=== PATIENT | female | born 1980 | race Caucasian/White ===

== ENCOUNTER → 2018-03-23 10:10 | Outpatient (CLI) | payer OTHER, SELFPAY ==
[2018-03-23 10:58] LABS: Cholesterol 189 mg/dL (140-199); HDL Cholesterol 36 mg/dL (40-60); LDL Cholesterol Calculated 111 mg/dL (<100); Triglycerides 209 mg/dL (35-150)
== END ==
PROVIDERS: PCP Family Medicine
DX: E78.2 Mixed hyperlipidemia (principal)
CPT/HCPCS: 36415; 80061

== ENCOUNTER → 2019-03-12 13:09 | Outpatient (CLI) | payer OTHER, SELFPAY ==
[2019-03-12 13:35] LABS: Influenza A and B by PCR Rapid Negative (Negative)
== END ==
PROVIDERS: PCP Family Medicine; Visit Provider Physician Assistant
DX: R68.89 Other general symptoms and signs (principal)
CPT/HCPCS: 87400

== ENCOUNTER → 2019-04-04 12:49 | Outpatient (CLI) | payer OTHER, SELFPAY ==
[2019-04-04 13:37] LABS: Add Manual Diff / Slide Review NO; Basophils Absolute Auto 0 /uL (0-100); Basophils Percent Auto 0.9 % (0-2); Eosinophils Absolute Auto 300 /uL (0-450); Eosinophils Percent Auto 6.8 % (2-4); Hematocrit 42.9 % (36-46); Hemoglobin 14.6 g/dL (12.0-16.0); Lymphocytes Absolute Auto 1400 /uL (1100-4500); Lymphocytes Percent Auto 31.4 % (25-40); Mean Corpuscular HGB Conc 34.1 % (30-36); Mean Corpuscular Hemoglobin 29.4 PG (26-34); Mean Corpuscular Volume 86.3 fL (80-100); Monocytes Absolute Auto 400 /uL (0-900); Monocytes Percent Auto 7.8 % (3-14); Neutrophils Absolute Auto 2400 /uL (1500-7000); Neutrophils Percent Auto 53.1 % (50-75); Platelet Count 222 X10^3/uL (150-400); Red Blood Cell Count 4.97 X10^6/uL (4.0-5.2); Red Cell Distribution Width 13.5 % (11.6-14.8); White Blood Cell Count 4.6 X10^3/uL (4.5-11.0)
[2019-04-04 14:06] LABS: Alanine Aminotransferase 28 IU/L (9-52); Albumin 4.4 g/dL (3.5-5.0); Albumin Globulin Ratio 1.5 (1.0-2.8); Alkaline Phosphatase 68 U/L (38-126); Aspartate Aminotransferase 24 IU/L (14-36); BUN Creatinine Ratio 13.8 (6-22); Bilirubin Total 0.5 mg/dL (0.2-1.3); Blood Urea Nitrogen 11 mg/dL (7-17); Calcium 9.5 mg/dL (8.4-10.2); Carbon Dioxide 29 mmol/L (22-32); Chloride 106 mmol/L (98-107); Estimated Glomerular Filt Rate > 60.0 mL/min (>60); Glucose 84 mg/dL (70-100); HEMOLYSIS < 15 (0-50); Sodium 142 mmol/L (137-145); Total Protein 7.4 g/dL (6.3-8.2)
[2019-04-04 14:31] LABS: TSH w/ Reflex to FT4 4.19 uIU/mL (0.47-4.68)
[2019-04-04 14:39] LABS: Testosterone 31.4 ng/dL (5.71-77.0)
== END ==
PROVIDERS: PCP Family Medicine; Visit Provider Family Medicine
DX: L68.0 Hirsutism (principal); Z83.3 Family history of diabetes mellitus
CPT/HCPCS: 36415; 80053; 84403; 84443; 85025

== ENCOUNTER 2019-05-11 13:00 | Emergency (ER) | payer OTHER, SELFPAY ==
[2019-05-11 13:10] VITALS: BP 139/92; PULSE 78; RESP 18; TEMP 36.6; O2SAT 100
[2019-05-11 13:12] VITALS: BP 139/92; PULSE 75; RESP 16; O2SAT 100; BMI 35.2
--- NOTE | 2019-05-11 13:20 | ED.ABDPAIN ---
HPI - Abdominal Pain <TAWANA Stewart - Last Filed: 05/11/19 20:00> General Chief Complaint: Abdominal Pain Stated Complaint: stomach pain and diarrhea since the Time Seen by Provider: 05/11/19 13:08 Source: patient Mode of arrival: ambulatory History of Present Illness HPI narrative: 39-year-old female with a history of hypertension, presents emergency department today complaining of sudden onset of abdominal pain and diarrhea for the past week. She states the pain is diffuse cramping 4/10 without alleviating or aggravating factors. She reports having 5-6 episodes of loose stool a day, in states her food is often undigested. She has been taking cephalexin since Thursday for right foot cellulitis but states the diarrhea occurred a day before this. She denies sick contacts, fevers, chills, vomiting, chest pain, shortness of breath, history of abdominal issues, recent travel, recent camping or hiking, melena, dysuria, or vaginal discharge. Patient states that she often makes her own tea and is unsure if she cleans the bottles well enough, however she stops drinking this tea three days ago. MD complaint: abdominal pain Pain Consistency: constant Location: diffuse Severity: moderate Severity scale (1-10): 4 Quality: cramping Radiation: none Relieving factors: nothing Exacerbating factors: nothing Related Data Home Medications Medication Instructions Recorded Confirmed Mirena 52 mg INTRAU QDAY #0 10/27/17 05/11/19 loratadine 10 mg tablet 10 mg PO DAILY 04/19/18 05/11/19 Previous Rx's Medication Instructions Recorded clobetasol 0.05 % topical ointment 1 applictn TOP BEDTIME #15 gram 04/29/19 spironolactone 25 mg tablet 25 mg PO BID #60 tab 04/29/19 cephalexin 500 mg capsule 500 mg PO QID 7 Days #28 cap 05/09/19 mupirocin 2 % topical ointment 1 applic TOP BID #22 gram 05/09/19 terbinafine HCl 1 % topical cream 1 applictn TOP BID #30 gram 05/09/19 Allergies Allergy/AdvReac Type Severity Reaction Status Date / Time No Known Drug Allergies Allergy Verified 05/11/19 13:12 Review of Systems <TAWANA Stewart - Last Filed: 05/11/19 20:00> Review of Systems REVIEW OF SYSTEMS: GENERAL: Denies fever, chills, malaise, or wt. loss. HENT: No head trauma, sore throat, or dysphagia. EYES: No loss of vision, double vision, eye pain, or irritation. CARDIOVASCULAR: No chest pain, palpitations, or orthopnea. RESPIRATORY: No shortness of breath or cough. GASTROINTESTINAL: Complains of abdominal pain and diarrhea, see HPI GENITOURINARY: No flank pain, urinary incontinence, hesitancy, frequency, or dysuria. No vaginal discharge or dyspareunia. Denies concerns for STIs MUSCULOSKELETAL: No pain, weakness, or trauma. INTEGUMENTARY: No rash, lesions, or pruritus. NEURO: No numbness, tingling, memory loss, confusion, or headaches. PSYCH: No behavior or mood changes. PFSH <TAWANA Stewart - Last Filed: 05/11/19 20:00> Medical History Alopecia (Chronic ~2014) Anxiety (Chronic ~1997) Chronic back pain (Chronic ~1993) Depression (Chronic ~1999) Hay fever (Chronic ~1999) Hyperlipidemia (Chronic ~2014) Hypertension (Chronic ~2014) Scoliosis (Chronic ~1993) Chicken pox (Resolved ~1985) Surgical History History of third molar tooth extraction Family History Brother Age: 34 High cholesterol Father Parkinson's disease Mother Age: 62 Hypertension High cholesterol Hearing loss Diabetes mellitus Grandmother Age: 92 Asthma Sister Age: 35 Mental health problem Asthma HPV in female Depression Grandfather Prostate cancer Social History marital status: unmarried,living together occupational status: employed (House keeper/laundry) Smoking Status: Never smoker alcohol intake: current substance use type: does not use Family History Brother Age: 34 High cholesterol Father Parkinson's disease Mother Age: 62 Hypertension High cholesterol Hearing loss Diabetes mellitus Grandmother Age: 92 Asthma Sister Age: 35 Mental health problem Asthma HPV in female Depression Grandfather Prostate cancer Social History marital status: unmarried,living together occupational status: employed (House keeper/laundry) Smoking Status: Never smoker alcohol intake: current substance use type: does not use Exam <TAWANA Stewart - Last Filed: 05/11/19 20:00> Initial Vital Signs Initial Vital Signs: Vital Signs Temperature 97.8 F 05/11/19 13:10 Pulse Rate 78 05/11/19 13:10 Respiratory Rate 18 05/11/19 13:10 Blood Pressure 139/92 H 05/11/19 13:10 Pulse Oximetry 100 05/11/19 13:10 PHYSICAL EXAMINATION: GENERAL: Well groomed, alert, and cooperative. Answers questions promptly and appropriately. Vital signs noted. HENT: Normocephalic, atraumatic. Hearing intact. Oral mucosa is pink and moist. EYES: Conjunctiva pink, sclera white, no periorbital swelling. CARDIOVASCULAR: S1 and S2 sounds normal. Regular rate and rhythm, no murmurs, clicks, or bruits. No pedal edema. RESPIRATORY: Normal respiratory rate, trachea midline, airway patent. No stridor, nasal flaring or accessory muscle use. Lungs are clear in all hernandez without wheeze, rhonchi, or crackles. GASTROINTESTINAL: Bowel sounds normoactive. Abdomen is soft, slight tenderness noted to epigastric region, the rest of the abdominal exam was not remarkable. No organomegaly, no palpable masses. GENITALURINARY: No flank tenderness. MUSCULOSKELETAL: Normal gait and coordination. Equal tone and mass bilaterally. EXTREMITIES: CMS intact, no pedal edema. Right foot appears to have healing cellulitis that is no longer erythematous. . SKIN: Warm, dry, soft, appropriate color for ethnicity. No lesions, rashes, or wounds. NEURO: Alert and Oriented X 3. Good coordination. No ataxia, or sensory deficits, or cognitive issues. PSYCH: Appropriate affect and mood. <Lala Kaur DO - Last Filed: 05/15/19 18:11> Initial Vital Signs Initial Vital Signs: Vital Signs Temperature 97.8 F 05/11/19 13:10 Pulse Rate 78 05/11/19 13:10 Respiratory Rate 18 05/11/19 13:10 Blood Pressure 139/92 H 05/11/19 13:10 Pulse Oximetry 100 05/11/19 13:10 Course <TAWANA Stewart - Last Filed: 05/11/19 20:00> Orders Ordered: Discontinued Medications Sodium Chloride (Normal Saline 0.9%) 1,000 mls @ 150 mls/hr IV CONT CELIA Last Infusion: 05/11/19 16:20 Dose: 0 mls/hr Admin: 05/11/19 14:01 Dose: 150 mls/hr Consultations Consultation #1: Patient staffed with Dr. Kaur. Vital Signs - 8 hr 05/11/19 13:10 05/11/19 13:12 05/11/19 14:00 Temperature 97.8 F Pulse Rate 78 75 62 Respiratory Rate 18 16 15 Blood Pressure 139/92 H Blood Pressure [Left Arm] 139/92 H 144/86 H Pulse Oximetry 100 100 100 05/11/19 15:00 05/11/19 16:28 05/11/19 16:32 Temperature Pulse Rate 52 L 60 60 Respiratory Rate 18 16 16 Blood Pressure 114/69 Blood Pressure [Left Arm] 141/78 H 114/69 Pulse Oximetry 100 100 100 <Lala Kaur DO - Last Filed: 05/15/19 18:11> Orders Ordered: Discontinued Medications Sodium Chloride (Normal Saline 0.9%) 1,000 mls @ 150 mls/hr IV CONT CELIA Last Infusion: 05/11/19 16:20 Dose: 0 mls/hr Admin: 05/11/19 14:01 Dose: 150 mls/hr Vital Signs - 8 hr 05/11/19 13:10 05/11/19 13:12 05/11/19 14:00 Temperature 97.8 F Pulse Rate 78 75 62 Respiratory Rate 18 16 15 Blood Pressure 139/92 H Blood Pressure [Left Arm] 139/92 H 144/86 H Pulse Oximetry 100 100 100 05/11/19 15:00 05/11/19 16:28 05/11/19 16:32 Temperature Pulse Rate 52 L 60 60 Respiratory Rate 18 16 16 Blood Pressure 114/69 Blood Pressure [Left Arm] 141/78 H 114/69 Pulse Oximetry 100 100 100 MDM - Abdominal Pain <TAWANA Stewart - Last Filed: 05/11/19 20:00> Medical Records Attestation: I reviewed the patient's medical records. Lab Data Attestation: I reviewed the patient's lab results. Result diagrams: 05/11/19 13:58 05/11/19 13:58 Lab Results 05/11/19 05/11/19 05/11/19 Range/Units 13:35 13:58 13:58 WBC 18.4 H (4.5-11.0) X10^3/uL RBC 5.35 H (4.0-5.2) X10^6/uL Hgb 15.7 (12.0-16.0) g/dL Hct 46.5 H (36-46) % MCV 87.0 (80-100) fL MCH 29.4 (26-34) PG MCHC 33.8 (30-36) % RDW 13.9 (11.6-14.8) % Plt Count 184 (150-400) X10^3/uL Neut % (Auto) Not Reportable Lymph % (Auto) Not Reportable Morgan % (Auto) Not Reportable Eos % (Auto) Not Reportable Baso % (Auto) Not Reportable Lymph # (Auto) Not Reportable Morgan # (Auto) Not Reportable Baso # (Auto) Not Reportable Total Counted 100 Seg Neutrophils % 39.0 (38-70) % Band Neutrophils % 1.0 L (3-7) % Lymphocytes % (Manual) 8.0 L (25-45) % Monocytes % (Manual) 4.0 (2-11) % Eosinophils % (Manual) 47.0 H (2-4) % Basophils % (Manual) 1.0 (0-1) % Neutrophils # (Manual) 7360 H (6430-6000) /uL RBC Morphology Normal morphology Sodium 140 (137-145) mmol/L Potassium 3.7 (3.4-5.1) mmol/L Chloride 102 (98-107) mmol/L Carbon Dioxide 26 (22-32) mmol/L BUN 15 (7-17) mg/dL Creatinine 0.80 (0.52-1.04) mg/dL Estimated GFR > 60.0 (>60) mL/min BUN/Creatinine Ratio 18.8 (6-22) Glucose 94 (70-100) mg/dL Calcium 9.9 (8.4-10.2) mg/dL Total Bilirubin 0.4 (0.2-1.3) mg/dL AST 31 (14-36) IU/L ALT 32 (9-52) IU/L Alkaline Phosphatase 101 (38-126) U/L Total Protein 7.9 (6.3-8.2) g/dL Albumin 4.8 (3.5-5.0) g/dL Globulin 3.1 (1.7-4.1) g/dL Albumin/Globulin Ratio 1.5 (1.0-2.8) Lipase 76 (23-300) U/L Urine RBC None seen (0-5/HPF) Urine WBC None seen (0-5/HPF) Ur Squamous Epith Cells 5-10 /hpf H (0-5/HPF) Calcium Oxalate Crystal Many H Amorphous Sediment 2+ Urine Bacteria None seen (None) Urine Mucus 2+ H (Negative) Ur Culture Indicated? Cult not indicated Stl C. cayetanensis PCR (Not Detect) Stool Rotavirus (PCR) (Not Detect) Stool Adenovirus (PCR) (Not Detect) Stool Astrovirus (PCR) (Not Detect) Stool Cryptosporidium PCR (Not Detect) Stl E.coli Shiga Tox PCR (Not Detect) St Sh/Enteroin Ecoli PCR (Not Detect) Stool E coli O157 PCR (Not Detect) Stl Enterotoxigenic E PCR (Not Detect) Stool EPEC (PCR) (Not Detect) Stl E. histolytica PCR (Not Detect) Stool Giardia Lamblia PCR (Not Detect) Stl P. shigelloides PCR (Not Detect) St Y.enterocolitica PCR (Not Detect) Stool Vibrio (PCR) (Not Detect) Stl Vibrio cholerae PCR (Not Detect) Stl Enteroaggr Ecoli PCR (Not Detect) Stl Norovirus GI/GII PCR (Not Detect) Campylobacter (PCR) (Not Detect) C. difficile Tox (PCR) (Not Detect) Salmonella (PCR) (Not Detect) 05/11/19 Range/Units 14:01 WBC (4.5-11.0) X10^3/uL RBC (4.0-5.2) X10^6/uL Hgb (12.0-16.0) g/dL Hct (36-46) % MCV (80-100) fL MCH (26-34) PG MCHC (30-36) % RDW (11.6-14.8) % Plt Count (150-400) X10^3/uL Neut % (Auto) Lymph % (Auto) Morgan % (Auto) Eos % (Auto) Baso % (Auto) Lymph # (Auto) Morgan # (Auto) Baso # (Auto) Total Counted Seg Neutrophils % (38-70) % Band Neutrophils % (3-7) % Lymphocytes % (Manual) (25-45) % Monocytes % (Manual) (2-11) % Eosinophils % (Manual) (2-4) % Basophils % (Manual) (0-1) % Neutrophils # (Manual) (0743-0211) /uL RBC Morphology Sodium (137-145) mmol/L Potassium (3.4-5.1) mmol/L Chloride (98-107) mmol/L Carbon Dioxide (22-32) mmol/L BUN (7-17) mg/dL Creatinine (0.52-1.04) mg/dL Estimated GFR (>60) mL/min BUN/Creatinine Ratio (6-22) Glucose (70-100) mg/dL Calcium (8.4-10.2) mg/dL Total Bilirubin (0.2-1.3) mg/dL AST (14-36) IU/L ALT (9-52) IU/L Alkaline Phosphatase (38-126) U/L Total Protein (6.3-8.2) g/dL Albumin (3.5-5.0) g/dL Globulin (1.7-4.1) g/dL Albumin/Globulin Ratio (1.0-2.8) Lipase (23-300) U/L Urine RBC (0-5/HPF) Urine WBC (0-5/HPF) Ur Squamous Epith Cells (0-5/HPF) Calcium Oxalate Crystal Amorphous Sediment Urine Bacteria (None) Urine Mucus (Negative) Ur Culture Indicated? Stl C. cayetanensis PCR Not detected (Not Detect) Stool Rotavirus (PCR) Not detected (Not Detect) Stool Adenovirus (PCR) Not detected (Not Detect) Stool Astrovirus (PCR) Not detected (Not Detect) Stool Cryptosporidium PCR Not detected (Not Detect) Stl E.coli Shiga Tox PCR Not detected (Not Detect) St Sh/Enteroin Ecoli PCR Not detected (Not Detect) Stool E coli O157 PCR Not detected (Not Detect) Stl Enterotoxigenic E PCR Not detected (Not Detect) Stool EPEC (PCR) Not detected (Not Detect) Stl E. histolytica PCR Not detected (Not Detect) Stool Giardia Lamblia PCR Not detected (Not Detect) Stl P. shigelloides PCR Not detected (Not Detect) St Y.enterocolitica PCR Not detected (Not Detect) Stool Vibrio (PCR) Not detected (Not Detect) Stl Vibrio cholerae PCR Not detected (Not Detect) Stl Enteroaggr Ecoli PCR Not detected (Not Detect) Stl Norovirus GI/GII PCR Not detected (Not Detect) Campylobacter (PCR) Not detected (Not Detect) C. difficile Tox (PCR) Not detected (Not Detect) Salmonella (PCR) Not detected (Not Detect) Point of care testing: Point of Care Testing Test Results Negative Urine Dip Bedside Urine Glucose Negative Bedside Urine Bilirubin + 1 Bedside Urine Ketone - Negative Urine Specific Dagmar 1.030 Bedside Urine Occult Blood - Negative Bedside Urine pH 6.0 Bedside Urine Protein +/- 15 Bedside Urine Urobilinogen - Negative Bedside Urine Nitrite - Negative Bedside Urine Leukocytes - Negative Esterase MDM Narrative Medical decision making narrative: Differential includes antibiotic induced diarrhea (most likely issues currently taking antibiotics, while diarrhea that started a little bit before it also occurred around the same time, negative stool studies, elevated white blood cell count may be explained by her resolving cellulitis), viral enteritis (elevated white blood cell count, lack of bacterial found in stool, benign abdominal exam), gastritis (epigastric pain), less likely cholecystitis, appendicitis, diverticulitis, or GI bleed (lack of significant pain on abdominal examination, lack of blood in stool, lack of worsening symptoms with digestion of food, no history of diverticulosis, no systemic symptoms such as fever or low blood pressure, and decreased p.o. intake, and no vomiting. Let less likely UTI due to negative urinalysis studies. Patient was encouraged to continue taking antibiotics as this was working for her cellulitis an it appeared to have been significant due from the resolving skin discoloration. She was given symptomatic treatment and told to follow up with her primary care provider for further testing if this continues after she is done with her antibiotics. Strict return precautions given and follow-up instructions discussed. <Lala Kaur, - Last Filed: 05/15/19 18:11> Lab Data Lab Results 05/11/19 05/11/19 05/11/19 Range/Units 13:35 13:58 13:58 WBC 18.4 H (4.5-11.0) X10^3/uL RBC 5.35 H (4.0-5.2) X10^6/uL Hgb 15.7 (12.0-16.0) g/dL Hct 46.5 H (36-46) % MCV 87.0 (80-100) fL MCH 29.4 (26-34) PG MCHC 33.8 (30-36) % RDW 13.9 (11.6-14.8) % Plt Count 184 (150-400) X10^3/uL Neut % (Auto) Not Reportable Lymph % (Auto) Not Reportable Morgan % (Auto) Not Reportable Eos % (Auto) Not Reportable Baso % (Auto) Not Reportable Lymph # (Auto) Not Reportable Morgan # (Auto) Not Reportable Baso # (Auto) Not Reportable Total Counted 100 Seg Neutrophils % 39.0 (38-70) % Band Neutrophils % 1.0 L (3-7) % Lymphocytes % (Manual) 8.0 L (25-45) % Monocytes % (Manual) 4.0 (2-11) % Eosinophils % (Manual) 47.0 H (2-4) % Basophils % (Manual) 1.0 (0-1) % Neutrophils # (Manual) 7360 H (4727-4732) /uL RBC Morphology Normal morphology Sodium 140 (137-145) mmol/L Potassium 3.7 (3.4-5.1) mmol/L Chloride 102 (98-107) mmol/L Carbon Dioxide 26 (22-32) mmol/L BUN 15 (7-17) mg/dL Creatinine 0.80 (0.52-1.04) mg/dL Estimated GFR > 60.0 (>60) mL/min BUN/Creatinine Ratio 18.8 (6-22) Glucose 94 (70-100) mg/dL Calcium 9.9 (8.4-10.2) mg/dL Total Bilirubin 0.4 (0.2-1.3) mg/dL AST 31 (14-36) IU/L ALT 32 (9-52) IU/L Alkaline Phosphatase 101 (38-126) U/L Total Protein 7.9 (6.3-8.2) g/dL Albumin 4.8 (3.5-5.0) g/dL Globulin 3.1 (1.7-4.1) g/dL Albumin/Globulin Ratio 1.5 (1.0-2.8) Lipase 76 (23-300) U/L Urine RBC None seen (0-5/HPF) Urine WBC None seen (0-5/HPF) Ur Squamous Epith Cells 5-10 /hpf H (0-5/HPF) Calcium Oxalate Crystal Many H Amorphous Sediment 2+ Urine Bacteria None seen (None) Urine Mucus 2+ H (Negative) Ur Culture Indicated? Cult not indicated Stl C. cayetanensis PCR (Not Detect) Stool Rotavirus (PCR) (Not Detect) Stool Adenovirus (PCR) (Not Detect) Stool Astrovirus (PCR) (Not Detect) Stool Cryptosporidium PCR (Not Detect) Stl E.coli Shiga Tox PCR (Not Detect) St Sh/Enteroin Ecoli PCR (Not Detect) Stool E coli O157 PCR (Not Detect) Stl Enterotoxigenic E PCR (Not Detect) Stool EPEC (PCR) (Not Detect) Stl E. histolytica PCR (Not Detect) Stool Giardia Lamblia PCR (Not Detect) Stl P. shigelloides PCR (Not Detect) St Y.enterocolitica PCR (Not Detect) Stool Vibrio (PCR) (Not Detect) Stl Vibrio cholerae PCR (Not Detect) Stl Enteroaggr Ecoli PCR (Not Detect) Stl Norovirus GI/GII PCR (Not Detect) Campylobacter (PCR) (Not Detect) C. difficile Tox (PCR) (Not Detect) Salmonella (PCR) (Not Detect) 05/11/19 Range/Units 14:01 WBC (4.5-11.0) X10^3/uL RBC (4.0-5.2) X10^6/uL Hgb (12.0-16.0) g/dL Hct (36-46) % MCV (80-100) fL MCH (26-34) PG MCHC (30-36) % RDW (11.6-14.8) % Plt Count (150-400) X10^3/uL Neut % (Auto) Lymph % (Auto) Morgan % (Auto) Eos % (Auto) Baso % (Auto) Lymph # (Auto) Morgan # (Auto) Baso # (Auto) Total Counted Seg Neutrophils % (38-70) % Band Neutrophils % (3-7) % Lymphocytes % (Manual) (25-45) % Monocytes % (Manual) (2-11) % Eosinophils % (Manual) (2-4) % Basophils % (Manual) (0-1) % Neutrophils # (Manual) (7982-7156) /uL RBC Morphology Sodium (137-145) mmol/L Potassium (3.4-5.1) mmol/L Chloride (98-107) mmol/L Carbon Dioxide (22-32) mmol/L BUN (7-17) mg/dL Creatinine (0.52-1.04) mg/dL Estimated GFR (>60) mL/min BUN/Creatinine Ratio (6-22) Glucose (70-100) mg/dL Calcium (8.4-10.2) mg/dL Total Bilirubin (0.2-1.3) mg/dL AST (14-36) IU/L ALT (9-52) IU/L Alkaline Phosphatase (38-126) U/L Total Protein (6.3-8.2) g/dL Albumin (3.5-5.0) g/dL Globulin (1.7-4.1) g/dL Albumin/Globulin Ratio (1.0-2.8) Lipase (23-300) U/L Urine RBC (0-5/HPF) Urine WBC (0-5/HPF) Ur Squamous Epith Cells (0-5/HPF) Calcium Oxalate Crystal Amorphous Sediment Urine Bacteria (None) Urine Mucus (Negative) Ur Culture Indicated? Stl C. cayetanensis PCR Not detected (Not Detect) Stool Rotavirus (PCR) Not detected (Not Detect) Stool Adenovirus (PCR) Not detected (Not Detect) Stool Astrovirus (PCR) Not detected (Not Detect) Stool Cryptosporidium PCR Not detected (Not Detect) Stl E.coli Shiga Tox PCR Not detected (Not Detect) St Sh/Enteroin Ecoli PCR Not detected (Not Detect) Stool E coli O157 PCR Not detected (Not Detect) Stl Enterotoxigenic E PCR Not detected (Not Detect) Stool EPEC (PCR) Not detected (Not Detect) Stl E. histolytica PCR Not detected (Not Detect) Stool Giardia Lamblia PCR Not detected (Not Detect) Stl P. shigelloides PCR Not detected (Not Detect) St Y.enterocolitica PCR Not detected (Not Detect) Stool Vibrio (PCR) Not detected (Not Detect) Stl Vibrio cholerae PCR Not detected (Not Detect) Stl Enteroaggr Ecoli PCR Not detected (Not Detect) Stl Norovirus GI/GII PCR Not detected (Not Detect) Campylobacter (PCR) Not detected (Not Detect) C. difficile Tox (PCR) Not detected (Not Detect) Salmonella (PCR) Not detected (Not Detect) Point of care testing: Point of Care Testing Test Results Negative Urine Dip Bedside Urine Glucose Negative Bedside Urine Bilirubin + 1 Bedside Urine Ketone - Negative Urine Specific Dagmar 1.030 Bedside Urine Occult Blood - Negative Bedside Urine pH 6.0 Bedside Urine Protein +/- 15 Bedside Urine Urobilinogen - Negative Bedside Urine Nitrite - Negative Bedside Urine Leukocytes - Negative Esterase Discharge Plan Departure Patient Disposition: Home Clinical Impression: Acute diarrhea Discharge Date/Time: 05/11/19 16:34 Interventions: ED Discharge Assessment Last Done: 05/11/19 16:32 Instructions: DI for Viral Gastroenteritis -- Adult, DI for Abdominal Pain-Adult Activity Restrictions/Additional Instructions: Thank you for entrusting me with your care today. As discussed, your lab work, urinalysis, and stool study did not show any causes for your diarrhea. I suspect that it may be caused by a antibiotic, however changing the antibiotics will not help decrease your diarrhea. Please finish these to prevent your foot from getting more infected. You can take [id number] loperamide 2-4mg for diarrhea episodes and [id number] ranitidine 150mg for excessive stomach acid and pain. Please schedule a follow-up appointment with your primary care provider in the next few weeks if symptoms continue, further testing such as a colonoscopy may be indicated. Return to the emergency department if he develops fevers, severe localized abdominal pain, chest pain, shortness of breath, blood in your stool, or uncontrollable vomiting. Prescriptions: No Action cephalexin [Keflex] 500 mg capsule 500 mg PO QID 7 Days Qty: 28 RF: 0 terbinafine HCl 1 % cream 1 applictn TOP BID Qty: 30 RF: 0 mupirocin 2 % ointment 1 applic TOP BID Qty: 22 RF: 0 clobetasol 0.05 % ointment 1 applictn TOP BEDTIME Qty: 15 RF: 1 spironolactone 25 mg tablet 25 mg PO BID Qty: 60 RF: 1 Mirena 1 EACH intrauterine device 52 mg INTRAU QDAY Qty: 0 RF: 0 loratadine [Allerclear] 10 mg tablet 10 mg PO DAILY RF: 0 Referrals: Jody Woodruff DO [Primary Care Provider] - <Lala Kaur DO - Last Filed: 05/15/19 18:11> Cosign ED Attending Cosignature Attestation: I was immediately available in the department for consultation. This documentation has been reviewed and I agree with assessment and plan. Supervised by Lala Kaur DO
[2019-05-11 14:00] VITALS: BP 144/86; PULSE 62; RESP 15; O2SAT 100
[2019-05-11] MEDS: SODIUM CHLORIDE 0.9% 1,000 ML 150 ML IV (14:01)
[2019-05-11 14:15] LABS: Hematocrit 46.5 % (36-46); Hemoglobin 15.7 g/dL (12.0-16.0); Mean Corpuscular HGB Conc 33.8 % (30-36); Mean Corpuscular Hemoglobin 29.4 PG (26-34); Platelet Count 184 X10^3/uL (150-400); Red Blood Cell Count 5.35 X10^6/uL (4.0-5.2); Red Cell Distribution Width 13.9 % (11.6-14.8); White Blood Cell Count 18.4 X10^3/uL (4.5-11.0)
[2019-05-11 14:16] LABS: Add Manual Diff / Slide Review YES
[2019-05-11 14:18] LABS: Alanine Aminotransferase 32 IU/L (9-52); Albumin 4.8 g/dL (3.5-5.0); Albumin Globulin Ratio 1.5 (1.0-2.8); Alkaline Phosphatase 101 U/L (38-126); Aspartate Aminotransferase 31 IU/L (14-36); BUN Creatinine Ratio 18.8 (6-22); Bilirubin Total 0.4 mg/dL (0.2-1.3); Blood Urea Nitrogen 15 mg/dL (7-17); Calcium 9.9 mg/dL (8.4-10.2); Carbon Dioxide 26 mmol/L (22-32); Chloride 102 mmol/L (98-107); Estimated Glomerular Filt Rate > 60.0 mL/min (>60); Globulin 3.1 g/dL (1.7-4.1); Glucose 94 mg/dL (70-100); HEMOLYSIS < 15 (0-50); Lipase 76 U/L (23-300); Potassium 3.7 mmol/L (3.4-5.1); Sodium 140 mmol/L (137-145); Total Protein 7.9 g/dL (6.3-8.2)
[2019-05-11 14:26] LABS: Bacteria Urine None Seen; RBC Urine None Seen (0-5/HPF); WBC Urine None Seen (0-5/HPF)
[2019-05-11 14:48] LABS: Amorphous Sediment Urine 2+; Calcium Oxalate Crystals Urine Many; Culture Indicated Urine Cult Not Indicated; Mucus Urine 2+ (Negative); Squamous Epithelial Cell Urine 5-10 /HPF (0-5/HPF)
[2019-05-11 14:56] LABS: Neutrophils Absolute Manual 7360 /uL (3000-5900); RBC Morphology Normal Morphology; Total Cells Counted 100
[2019-05-11 15:00] VITALS: BP 141/78; PULSE 52; RESP 18; O2SAT 100
[2019-05-11 15:34] LABS: Adenovirus F 40/41 Not Detected (Not Detect); Astrovirus Not Detected (Not Detect); Campylobacter Not Detected (Not Detect); Clostridium difficile toxin AB Not Detected (Not Detect); Cryptosporidium Not Detected (Not Detect); Cyclospora cayetanensis Not Detected (Not Detect); Entamoeba histolytica Not Detected (Not Detect); Enteroaggregative E.coli Not Detected (Not Detect); Enteropathogenic E.coli Not Detected (Not Detect); Enterotoxigenic E.coli It/st Not Detected (Not Detect); Giardia lamblia Not Detected (Not Detect); Norovirus GI/GII Not Detected (Not Detect); Plesiomonsa shigelloides Not Detected (Not Detect); Rotavirus A Not Detected (Not Detect); Salmonella Not Detected (Not Detect); Shiga-like toxin-prod E.coli Not Detected (Not Detect); Shigella/Enteroinvasive E.coli Not Detected (Not Detect); Vibrio Not Detected (Not Detect); Vibrio cholerae Not Detected (Not Detect); Yersinia enterocolitica Not Detected (Not Detect)
[2019-05-11 16:28] VITALS: BP 114/69; PULSE 60; RESP 16; O2SAT 100
[2019-05-11 16:32] VITALS: BP 114/69; PULSE 60; RESP 16; O2SAT 100
== END 2019-05-11 16:34 | disposition home or self-care (01) ==
PROVIDERS: Emergency Provider Nurse Practitioner; PCP Family Medicine
DX: R19.7 Diarrhea, unspecified (principal)
CPT/HCPCS: 36591; 80053; 81003; 81015; 81025; 83690; 85025; 87507; 96360; 96361; 99283

== ENCOUNTER → 2019-08-10 11:35 | Outpatient (CLI) | payer OTHER, SELFPAY | PROVIDERS: PCP Family Medicine; Visit Provider Physician Assistant | DX: N30.01 Acute cystitis with hematuria (principal) | CPT/HCPCS: 87077; 87086 ==

== ENCOUNTER → 2020-03-12 10:55 | Outpatient (CLI) | payer OTHER, SELFPAY ==
[2020-03-12 12:35] LABS: Add Manual Diff / Slide Review NO; Basophils Absolute Auto 0 /uL (0-100); Basophils Percent Auto 0.6 % (0-2); Eosinophils Absolute Auto 400 /uL (0-450); Hematocrit 43.2 % (36-46); Hemoglobin 15.1 g/dL (12.0-16.0); Lymphocytes Absolute Auto 1300 /uL (1100-4500); Lymphocytes Percent Auto 20.6 % (25-40); Mean Corpuscular HGB Conc 34.9 % (30-36); Mean Corpuscular Hemoglobin 30.7 PG (26-34); Mean Corpuscular Volume 87.8 fL (80-100); Monocytes Absolute Auto 500 /uL (0-900); Monocytes Percent Auto 8.2 % (3-14); Neutrophils Absolute Auto 3900 /uL (1500-7000); Neutrophils Percent Auto 64.6 % (50-75); Platelet Count 201 X10^3/uL (150-400); Red Blood Cell Count 4.92 X10^6/uL (4.0-5.2); Red Cell Distribution Width 13.4 % (11.6-14.8); White Blood Cell Count 6.1 X10^3/uL (4.5-11.0)
[2020-03-12 12:45] LABS: Alanine Aminotransferase 28 IU/L (<35); Albumin 4.5 g/dL (3.5-5.0); Albumin Globulin Ratio 1.6 (1.0-2.8); Alkaline Phosphatase 55 U/L (38-126); Aspartate Aminotransferase 27 IU/L (14-36); BUN Creatinine Ratio 18.2 (6-22); Bilirubin Total 0.3 mg/dL (0.2-1.3); Blood Urea Nitrogen 14 mg/dL (7-17); Calcium 9.5 mg/dL (8.4-10.2); Carbon Dioxide 24 mmol/L (22-32); Chloride 105 mmol/L (98-107); Estimated Glomerular Filt Rate > 60.0 mL/min (>60); Globulin 2.8 g/dL (1.7-4.1); Glucose 83 mg/dL (70-100); HEMOLYSIS < 15 (0-50); Potassium 4.5 mmol/L (3.4-5.1); Sodium 138 mmol/L (137-145); Total Protein 7.3 g/dL (6.3-8.2)
[2020-03-12 13:01] LABS: Vitamin D 25 Hydroxy (D3) 35.8 ng/mL (30.0-100.0)
[2020-03-12 13:13] LABS: TSH w/ Reflex to FT4 3.15 uIU/mL (0.47-4.68)
== END ==
PROVIDERS: PCP Family Medicine; Referring Provider Family Medicine; Visit Provider Family Medicine
DX: R53.83 Other fatigue (principal); E55.9 Vitamin D deficiency, unspecified
CPT/HCPCS: 36415; 80053; 82306; 84443; 85025

== ENCOUNTER → 2021-08-01 13:29 | Outpatient (CLI) | payer OTHER, SELFPAY ==
--- NOTE | 2021-10-24 08:55 | PM.CARDMON.1 ---
Quantitative Researcher Report Referral & Results Date Patient Seen: 08/01/21 Requesting provider: Jody Woodruff Indication: Palpitations Duration of monitoring (days): 7 Diary information: There were 8 patient triggered events and 7 patient diary entries Patient triggered events were associated variably with (within 45 seconds) sinus rhythm, simple PACs, simple PVCs, and SVT. The computer identified junctional rhythm but I do not believe that was present Patient diary events were variably associated with (within 45 seconds) sinus rhythm and SVT, and again computer identified junctional rhythm that I do not believe was present, merely artifactual Data: Minimum heart rate was 52 beats per minute at 09:24 on 08/06/2021 Maximum sinus heart rate was 151 beats per minute at 11:32 on 08/05/2021 Maximum overall heart rate was 179 beats per minute at 23:27 on 08/02/2021 during a run of SVT Less than 1% of identified beats were ventricular or supraventricular ectopic in origin, which would classify them as rare. There was 1 run of SVT that was 9.5 seconds in duration at a rate of 139 beats per minute. 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 Difficult to connect patient reported symptoms with anyone particular dysrhythmia Of note, this report was not available until today despite the fact that this study was placed in July 2021. Unclear as to why the significant delay in this report becoming available from the vendor. Report was interpreted on the day it was received and forwarded to ordering physician.
== END ==
PROVIDERS: PCP Family Medicine; Referring Provider Family Medicine; Visit Provider Family Medicine
DX: R00.2 Palpitations (principal)
CPT/HCPCS: 93242; 93244

== ENCOUNTER → 2022-12-04 08:10 | Outpatient (CLI) | payer BC, SELFPAY ==
--- NOTE | 2022-12-04 08:12 | DI.MG.S_ITS ---
BILATERAL DIGITAL SCREENING MAMMOGRAM 3D/2D WITH CAD: 12/04/2022 CLINICAL: Routine screening. Baseline exam. No prior exams were available for comparison. Both breasts are heterogeneously dense, which may obscure small masses (category c / 51-75% glandular tissue). Current study was also evaluated with a Computer Aided Detection (CAD) system. No significant masses, calcifications, or other findings are seen in either breast. IMPRESSION: NEGATIVE There is no mammographic evidence of malignancy. A 1 year screening mammogram is recommended. Based on the Tyrer Cuzick model (a risk assessment model) the patient's lifetime risk is 14.1% and her 10 year risk is 1.9%. According to the ACR, ACS, and NCCN guidelines, an annual breast MRI exam along with mammogram is recommended if the patient's lifetime risk is 20% or greater. This exam was interpreted at Station ID: [id number]. NOTE: For mammograms, a report in lay terms will be sent to the patient. Approximately 15% of breast malignancies will not be visualized mammographically. In the management of a palpable breast mass, a negative mammogram must not discourage biopsy of a clinically suspicious lesion. Electronically Signed By: Patel Dobbs M.D., jr/senia:12/04/2022 09:11:40 letter sent: Normal Exam ACR BI-RADS Category 1: Negative 3341F
== END ==
PROVIDERS: PCP Family Medicine; Referring Provider Family Medicine; Visit Provider Family Medicine
DX: Z12.31 Encounter for screening mammogram for malignant neoplasm of breast (principal)
CPT/HCPCS: 77063; 77067

== ENCOUNTER → 2023-05-08 15:31 | Outpatient (CLI) | payer BC, SELFPAY ==
[2023-05-08 16:35] LABS: Add Manual Diff / Slide Review NO; Basophils Absolute Auto 0 /uL (0-100); Basophils Percent Auto 0.8 % (0-2); Eosinophils Absolute Auto 300 /uL (0-450); Eosinophils Percent Auto 5.2 % (2-4); Hematocrit 41.3 % (36-46); Hemoglobin 14.5 g/dL (12.0-16.0); Lymphocytes Absolute Auto 1300 /uL (1100-4500); Mean Corpuscular HGB Conc 35.3 % (30-36); Mean Corpuscular Hemoglobin 29.6 PG (26-34); Mean Corpuscular Volume 84.1 fL (80-100); Monocytes Absolute Auto 300 /uL (0-900); Monocytes Percent Auto 6.2 % (3-14); Neutrophils Absolute Auto 3400 /uL (1500-7000); Neutrophils Percent Auto 63.8 % (50-75); Platelet Count 246 X10^3/uL (150-400); Red Blood Cell Count 4.91 X10^6/uL (4.0-5.2); White Blood Cell Count 5.3 X10^3/uL (4.5-11.0)
[2023-05-08 18:03] LABS: Alanine Aminotransferase 27 IU/L (<35); Albumin 4.4 g/dL (3.5-5.0); Albumin Globulin Ratio 1.5 (1.0-2.8); Alkaline Phosphatase 93 U/L (38-126); Aspartate Aminotransferase 30 IU/L (14-36); BUN Creatinine Ratio 12.2 (6-22); Bilirubin Total 0.4 mg/dL (0.2-1.3); Blood Urea Nitrogen 12 mg/dL (7-17); Calcium 9.4 mg/dL (8.4-10.2); Carbon Dioxide 29 mmol/L (22-32); Chloride 102 mmol/L (98-107); Cholesterol 250 mg/dL (140-199); Estimated Glomerular Filt Rate > 60 mL/min (>60); Glucose 115 mg/dL (70-100); HDL Cholesterol 33 mg/dL (40-60); HEMOLYSIS < 15 (0-50); LDL Cholesterol Calculated 161 mg/dL (<100); Sodium 137 mmol/L (137-145); Total Protein 7.4 g/dL (6.3-8.2); Triglycerides 278 mg/dL (35-150)
[2023-05-08 18:33] LABS: TSH w/ Reflex to FT4 1.88 uIU/mL (0.47-4.68)
[2023-05-09 07:03] LABS: Labcorp Hemoglobin (Hb) A1c 5.8 % (4.8-5.6)
== END ==
PROVIDERS: PCP Family Medicine; Referring Provider Family Medicine; Visit Provider Family Medicine
DX: I10 Essential (primary) hypertension (principal); R03.0 Elevated blood-pressure reading, without diagnosis of hypertension; R53.82 Chronic fatigue, unspecified
CPT/HCPCS: 36415; 80053; 80061; 83036; 84443; 85025

== ENCOUNTER → 2023-09-11 14:50 | Outpatient (CLI) | payer BC, SELFPAY ==
[2023-09-11 15:41] LABS: Hemoglobin A1C% w Est Avg Glu 5.7 % (4.0-6.0)
== END ==
PROVIDERS: PCP Family Medicine; Referring Provider Family Medicine; Visit Provider Family Medicine
DX: R73.01 Impaired fasting glucose (principal)
CPT/HCPCS: 36415; 83036

== ENCOUNTER → 2024-04-22 15:37 | Outpatient (CLI) | payer OTHER, SELFPAY ==
[2024-04-22 17:42] LABS: Alanine Aminotransferase 37 IU/L (<35); Albumin 4.8 g/dL (3.5-5.0); Albumin Globulin Ratio 1.5 (1.0-2.8); Alkaline Phosphatase 75 U/L (38-126); Aspartate Aminotransferase 32 IU/L (14-36); Bilirubin Total 0.6 mg/dL (0.2-1.3); Blood Urea Nitrogen 12 mg/dL (7-17); Calcium 9.8 mg/dL (8.4-10.2); Carbon Dioxide 28 mmol/L (22-32); Chloride 107 mmol/L (98-107); Cholesterol 308 mg/dL (140-199); Estimated Glomerular Filt Rate > 60 mL/min (>60); Globulin 3.1 g/dL (1.7-4.1); Glucose 96 mg/dL (70-100); HDL Cholesterol 43 mg/dL (40-60); HEMOLYSIS < 15 (0-50); LDL Cholesterol Calculated 211 mg/dL (<100); Potassium 4.8 mmol/L (3.4-5.1); Sodium 141 mmol/L (137-145); Total Protein 7.9 g/dL (6.3-8.2); Triglycerides 272 mg/dL (35-150)
[2024-04-22 17:43] LABS: Hemoglobin A1C% w Est Avg Glu 5.6 % (4.0-6.0)
[2024-04-25 17:21] LABS: HIV 1 & 2 Ab/Ag 4th Gen Combo NEGATIVE (NEGATIVE); Hep C Virus Ab w/Reflex Quant NEGATIVE s/c (NEGATIVE)
== END ==
PROVIDERS: PCP Family Medicine; Referring Provider Family Medicine; Visit Provider Family Medicine
DX: Z00.00 Encounter for general adult medical examination without abnormal findings (principal); R73.01 Impaired fasting glucose; I10 Essential (primary) hypertension; E78.2 Mixed hyperlipidemia
CPT/HCPCS: 36415; 80053; 80061; 83036; 86803; 87389

== ENCOUNTER → 2024-09-02 09:25 | Outpatient (CLI) | payer OTHER, SELFPAY ==
[2024-09-02 10:46] LABS: BUN Creatinine Ratio 11.5 (6-22); Blood Urea Nitrogen 12 mg/dL (7-17); Calcium 9.2 mg/dL (8.4-10.2); Carbon Dioxide 26 mmol/L (22-32); Chloride 101 mmol/L (98-107); Cholesterol 236 mg/dL (140-199); Estimated Glomerular Filt Rate > 60 mL/min (>60); Glucose 83 mg/dL (70-100); HDL Cholesterol 42 mg/dL (40-60); HEMOLYSIS < 15 (0-50); LDL Cholesterol Calculated 147 mg/dL (<100); Potassium 3.5 mmol/L (3.4-5.1); Sodium 135 mmol/L (137-145); Triglycerides 235 mg/dL (35-150)
== END ==
PROVIDERS: PCP Family Medicine; Referring Provider Family Medicine; Visit Provider Family Medicine
DX: E78.2 Mixed hyperlipidemia (principal); N28.9 Disorder of kidney and ureter, unspecified
CPT/HCPCS: 36415; 80048; 80061

== ENCOUNTER 2025-01-19 21:10 | Emergency (ER) | payer OTHER, SELFPAY ==
[2025-01-19 21:32] VITALS: BP 166/90; PULSE 75; RESP 18; TEMP 36.6; O2SAT 99; BMI 35.4
== END 2025-01-19 22:52 | disposition left against medical advice (07) ==
PROVIDERS: Emergency Provider Student in an Organized Health Care Education/Training Program; PCP Family Medicine
CPT/HCPCS: 99281

== ENCOUNTER 2025-02-09 10:04 | Emergency (ER) | payer OTHER, SELFPAY ==
[2025-02-09] VITALS (7 sets, daily range): BP systolic 129–166; BP diastolic 70–97; PULSE 68–80; RESP 14–18; TEMP 36.9; O2SAT 92–99; BMI 35.4
--- NOTE | 2025-02-09 10:14 | EKG_ITS ---
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
[2025-02-09] MEDS: ONDANSETRON 4 MG/2 ML INJ IV (10:27)
[2025-02-09 10:38] LABS: Add Manual Diff / Slide Review NO; Basophils Absolute Auto 100 /uL (0-100); Basophils Percent Auto 0.9 % (0-2); Eosinophils Absolute Auto 200 /uL (0-450); Eosinophils Percent Auto 2.2 % (2-4); Hematocrit 44.4 % (36-46); Hemoglobin 15.3 g/dL (12.0-16.0); Lymphocytes Absolute Auto 1600 /uL (1100-4500); Lymphocytes Percent Auto 21.2 % (25-40); Mean Corpuscular HGB Conc 34.6 % (30-36); Mean Corpuscular Volume 86.8 fL (80-100); Monocytes Absolute Auto 400 /uL (0-900); Monocytes Percent Auto 5.3 % (3-14); Neutrophils Absolute Auto 5200 /uL (1500-7000); Neutrophils Percent Auto 70.4 % (50-75); Platelet Count 229 X10^3/uL (150-400); Red Blood Cell Count 5.12 X10^6/uL (4.0-5.2); White Blood Cell Count 7.4 X10^3/uL (4.5-11.0)
[2025-02-09 10:46] LABS: INR 0.9 (0.9-1.3); Prothrombin Time 10.4 SECONDS (9.4-12.5)
[2025-02-09 10:49] LABS: PTT Partial Thromboplastin Tim 32 SECONDS (25.1-36.5)
[2025-02-09 10:58] LABS: Alanine Aminotransferase 35 IU/L (<35); Albumin 4.7 g/dL (3.5-5.0); Albumin Globulin Ratio 1.9 (1.0-2.8); Alkaline Phosphatase 70 U/L (38-126); Aspartate Aminotransferase 32 IU/L (14-36); BUN Creatinine Ratio 13.5 (6-22); Bilirubin Total 0.5 mg/dL (0.2-1.3); Blood Urea Nitrogen 13 mg/dL (7-17); Calcium 9.1 mg/dL (8.4-10.2); Carbon Dioxide 26 mmol/L (22-32); Chloride 104 mmol/L (98-107); Creatine Kinase 66 U/L (30-135); Estimated Glomerular Filt Rate > 60 mL/min (>60); Globulin 2.5 g/dL (1.7-4.1); Glucose 139 mg/dL (70-99); HEMOLYSIS < 15 (0-50); Magnesium 2.1 mg/dL (1.6-2.3); Sodium 139 mmol/L (137-145); Total Protein 7.2 g/dL (6.3-8.2)
[2025-02-09 11:09] LABS: Troponin I < 0.012 ng/mL (0.01-0.034)
--- NOTE | 2025-02-09 12:04 | DI.CT.S_ITS ---
PROCEDURE: CT HEAD/BRAIN WO CON INDICATIONS: dizziness TECHNIQUE: Noncontrast 4.5 mm thick angled axial sections acquired from the foramen magnum to the vertex, with coronal and sagittal reformats. For radiation dose reduction, the following was used: automated exposure control, adjustment of mA and/or kV according to patient size. COMPARISON: None. FINDINGS: Image quality: Diagnostic. CSF spaces: Basal cisterns are patent. No extra-axial fluid collections. Ventricles are normal in size and shape. Brain: No midline shift. No intracranial mass effect or hemorrhage. Beckham-white matter interface is normal. Skull and face: Calvarium and visualized facial bones are intact, without suspicious lesions. Sinuses: Visualized sinuses and mastoids are clear. IMPRESSION: No acute intracranial pathology. Dictated by: Kody Arambula M.D. on 02/09/2025 at 13:07 Approved by: Kody Arambula M.D. on 02/09/2025 at 13:11
[2025-02-09] MEDS: MECLIZINE HCL 12.5 MG TABLET 25 MG PO (12:08)
--- NOTE | 2025-02-09 12:08 | PC.NURSE ---
Pt reports nausea/dizziness have slightly improved, but still there and feels better when her eyes are closed. Updated pt on plan of care, head CT and medication Meclizine. Pt verbally agrees.
--- NOTE | 2025-02-09 14:02 | ED.GENADULT ---
HPI - General Adult General Chief complaint: Dizziness Stated complaint: Vomiting, dizzy, on and off for two weeks Time Seen by Provider: 02/09/25 13:49 Source: patient Mode of arrival: Ambulatory History of Present Illness HPI narrative: Pt is a 44 year old female her for persistent severe vertigo and dizziness that started @ 0730 when she woke up. Fine last night. This is her 3 episode - prior ones occurred on and . She's had an evaluation fort his previously but no imaging of the brain done. She had a mild headache last night but none today. No hx of migraines. No recent trauma. Feels vertiginous and unsteady on her feet. No fever, cough, congestion, tinnitus, hearing loss, recent URIs. No chest pain, cough, shortness of breath. Vomited 5x so far today due to this. No diarrhea. Not diabetic. No abdominal pain. No thyroid issues. No localized weakness, numbness, slurred speech or confusion. No dysuria. LMP 10 years ago - has IUD in place. Related Data Home Medications Medication Instructions Recorded Confirmed loratadine 10 mg tablet 10 mg PO DAILY 04/19/18 04/22/24 (Allerclear) levonorgestrel 21 mcg/24 hr (up to 52,000 mcg intrauterine QDAY ##0 02/28/22 04/22/24 8 years) 52 mg intrauterine device (Mirena) Previous Rx's Medication Instructions Recorded clobetasol 0.05 % topical ointment 1 applictn topical BEDTIME #15 07/27/ grams bupropion HCl 150 mg tablet,12 hr 150 mg PO BID #180 ea 04/22/24 sustained-release fluoxetine 20 mg capsule (Prozac) 20 mg PO DAILY #90 caps 04/22/24 fluticasone propionate 50 2 spray intranasal DAILY PRN nasal 04/22/24 mcg/actuation nasal congestion #16 grams spray,suspension (Flonase Allergy Relief) hydroxyzine HCl 25 mg tablet 25 mg PO TID PRN anxiety #90 tabs 04/22/24 spironolactone 50 mg tablet 50 mg PO BID #180 tabs 04/22/24 rosuvastatin 40 mg tablet (Crestor) 40 mg PO DAILY #100 tabs 09/05/24 meclizine 25 mg tablet 25 mg PO TID #15 tabs 02/09/25 ondansetron 4 mg disintegrating 4 mg PO Q8H #12 tabs 02/09/25 tablet Allergies Allergy/AdvReac Type Severity Reaction Status Date / Time animal dander Allergy Mild swollen Verified 02/09/25 10:18 eyes, itchy sinus house dust Allergy Mild sneezing, Verified 02/09/25 10:18 watery eyes seasonal allergy Allergy Mild sneezing, Uncoded 02/09/25 10:18 watery eyes Review of Systems Review of Systems ROS Unobtainable: All systems reviewed & are unremarkable except as noted in HPI and below Patient History Medical History (Updated 02/09/25 @ 15:17 by Anup Doty MD) Mixed hyperlipidemia Hirsutism Insomnia Excessive daytime sleepiness Generalized anxiety disorder Seasonal affective disorder Hay fever (~1999) Anxiety (~1997) Scoliosis (~1993) Chronic back pain (~1993) Chicken pox (~1985) Hypertension (~2014) Hyperlipidemia (~2014) Alopecia (~2014) Surgical History History of third molar tooth extraction Family History Brother Age: 37 High cholesterol Father Parkinson's disease Alcohol abuse Mother Age: 65 High cholesterol Hearing loss Diabetes mellitus Loud snoring Hypertension Grandmother Age: 95 Asthma Sister Age: 38 Mental health problem Asthma HPV in female Depression Grandfather Prostate cancer Family/Other Loud snoring Obesity Heart disease Depression Social History marital status: unmarried,living together occupational status: employed Smoking Status: Never smoker alcohol intake: current substance use type: does not use Smoking Status: Never smoker Exam Narrative Exam Narrative: Focused physical exam as follows: General: Well developed, well nourished HEENT: pink palpebral conjunctiva, anicteric sclera, YARITZA, moist mucous membranes; mild nystagmus with fast component to the right; no facial droop Lungs; no respiratory distress, clear to auscultation without wheezes or crackles; equal breath sounds Heart: normal rate, regular rhythm, no appreciable murmurs Abdomen: soft, nontender, no rebound or rigidity Extremities: no pedal edema Neuro: AAOx3, GCS 15, nystagmus with fast component to the right; HI negative; TofS negative Psyche: no SI/HI, normal affect Initial Vital Signs Initial Vital Signs: Vital Signs Temperature 98.4 F 02/09/25 10:12 Pulse Rate 77 02/09/25 10:12 Respiratory Rate 17 02/09/25 10:12 Blood Pressure 158/95 H 02/09/25 10:12 Pulse Oximetry 95 02/09/25 10:12 Oxygen Delivery Method Room Air 02/09/25 10:12 Course Course Course Narrative: Pt interviewed and examined. Pt with mild nystagmus with fast component to the right. HINTS exam otherwise normal. Diff diagnosis includes but not limited to: BPPV, labyrinthitis, Meniere's disease, TIA/CVA, brain neoplasm, cardiac dysrhythmia, electrolyte imbalance, dehydration, symptomatic anemia, adverse effect of illicit drug/ETOH Ordered placed prior to my arrival and evaluation included CT head - negative for acute bleed/process Last known well time was 1AM. NIHSS score is zero Bedside EKG showed no ST elevation or ectopy. Pt is not a TNKase candidate. Additional imaging studies including CTA head and neck and MRI brain (stroke protocol) ordered. Zofran and Meclizine given earlier - minimal improvement. Compazine IV ordered. CT head, CTA head and neck and MRI brain without acute process Discussed reassuring work up thus far and plan of care. Stable for discharge Orders Ordered: ED Orders 02/09/25 10:19 EKG-12 Lead Stat 02/09/25 10:22 Complete Blood Count AUTO DIFF Stat Comprehensive Metabolic Panel Stat Magnesium Stat PTT Partial Thromboplastin Andrés Stat Prothrombin Time INR Stat Troponin & CK Cardiac Panel Stat 02/09/25 12:04 CT head/brain wo con Stat 02/09/25 14:03 CT angio head and neck Stat 02/09/25 14:06 MR head/brain wo con Stat Ondansetron HCl (Ondansetron 4 Mg/2 Ml Inj) 4 mg IV NOW PRN PRN Reason: Nausea And Vomiting Last Admin: 02/09/25 10:27 Dose: 4 mg Documented By: CTS Ondansetron HCl (Ondansetron 4 Mg Odt) 4 mg SL NOW PRN PRN Reason: Nausea And Vomiting Discontinued Medications Meclizine HCl (Meclizine Hcl 12.5 Mg Tablet) 25 mg PO NOW ONE Stop: 02/09/25 12:05 Last Admin: 02/09/25 12:08 Dose: 25 mg Documented By: CESAR Prochlorperazine (Prochlorperazine 10 Mg/2 Ml Vial) 10 mg IV NOW ONE Stop: 02/09/25 14:06 Last Admin: 02/09/25 14:13 Dose: 10 mg Documented By: CTS Vital Signs Vital signs: Vital Signs - 8 hr 02/09/25 10:12 02/09/25 13:21 02/09/25 13:21 Temperature 98.4 F Pulse Rate 77 80 Respiratory Rate 17 Blood Pressure 158/95 H 161/95 H Pulse Oximetry 95 97 Oxygen Delivery Method Room Air 02/09/25 13:30 02/09/25 13:30 02/09/25 14:00 Temperature Pulse Rate 68 73 Respiratory Rate 18 14 Blood Pressure 152/70 H Pulse Oximetry 95 99 Oxygen Delivery Method 02/09/25 14:00 Temperature Pulse Rate Respiratory Rate Blood Pressure 166/97 H Pulse Oximetry Oxygen Delivery Method Medical Decision Making Differential Diagnosis Differential Diagnosis: Medical Records Medical records reviewed: Yes I reviewed the patient's medical records. Lab Data Lab results reviewed: Yes I reviewed the patient's lab results. 02/09/25 10:22 02/09/25 10:22 Labs: Lab Results 02/09/25 Range/Units 10:22 WBC 7.4 (4.5-11.0) X10^3/uL RBC 5.12 (4.0-5.2) X10^6/uL Hgb 15.3 (12.0-16.0) g/dL Hct 44.4 (36-46) % MCV 86.8 (80-100) fL MCH 30.0 (26-34) PG MCHC 34.6 (30-36) % RDW 13.0 (11.6-14.8) % Plt Count 229 (150-400) X10^3/uL Neut % (Auto) 70.4 (50-75) % Lymph % (Auto) 21.2 L (25-40) % [place] % (Auto) 5.3 (3-14) % Eos % (Auto) 2.2 (2-4) % Baso % (Auto) 0.9 (0-2) % Neut # (Auto) 5200 (5855-1682) /uL Lymph # (Auto) 1600 (3767-0971) /uL [place] # (Auto) 400 (0-900) /uL Eos # (Auto) 200 (0-450) /uL Baso # (Auto) 100 (0-100) /uL PT 10.4 (9.4-12.5) SECONDS INR 0.9 (0.9-1.3) APTT 32 (25.1-36.5) SECONDS Sodium 139 (137-145) mmol/L Potassium 4.0 (3.4-5.1) mmol/L Chloride 104 (98-107) mmol/L Carbon Dioxide 26 (22-32) mmol/L BUN 13 (7-17) mg/dL Creatinine 0.96 (0.52-1.04) mg/dL Estimated GFR > 60 (>60) mL/min BUN/Creatinine Ratio 13.5 (6-22) Glucose 139 H (70-99) mg/dL Calcium 9.1 (8.4-10.2) mg/dL Magnesium 2.1 (1.6-2.3) mg/dL Total Bilirubin 0.5 (0.2-1.3) mg/dL AST 32 (14-36) IU/L ALT 35 H (<35) IU/L Alkaline Phosphatase 70 (38-126) U/L Total Creatine Kinase 66 (30-135) U/L Troponin I < 0.012 (0.01-0.034) ng/mL Total Protein 7.2 (6.3-8.2) g/dL Albumin 4.7 (3.5-5.0) g/dL Globulin 2.5 (1.7-4.1) g/dL Albumin/Globulin Ratio 1.9 (1.0-2.8) Point of Care Testing Test Results Negative Urine Dip Bedside Urine Glucose Negative Bedside Urine Bilirubin - Negative Bedside Urine Ketone - Negative Urine Specific [place] 1.010 Bedside Urine Occult Blood - Negative Bedside Urine pH 8.0 Bedside Urine Protein - Negative Bedside Urine Urobilinogen - Negative Bedside Urine Nitrite - Negative Bedside Urine Leukocytes - Negative Esterase Point of care testing: Point of Care Testing Test Results Negative Urine Dip Bedside Urine Glucose Negative Bedside Urine Bilirubin - Negative Bedside Urine Ketone - Negative Urine Specific [place] 1.010 Bedside Urine Occult Blood - Negative Bedside Urine pH 8.0 Bedside Urine Protein - Negative Bedside Urine Urobilinogen - Negative Bedside Urine Nitrite - Negative Bedside Urine Leukocytes - Negative Esterase ECG Data Attestation: I personally reviewed and interpreted this ECG as follows: Discharge Plan Departure Patient Disposition: Home Clinical Impression: Vertigo Instructions: DI for Vertigo Activity Restrictions/Additional Instructions: Work up today was generally reassuring with no serious cause of your symptoms. Take Meclizine to help with vertigo. Take Zofran for nausea. Drink plenty of fluids. Eat at regular intervals. Follow up with your regular doctor to further evaluate and treat your symptoms - you may need to see ENT or neurology. Return to the ER if with worsening symptoms. Prescriptions: New meclizine 25 mg tablet 25 mg PO TID Qty: 15 0RF ondansetron 4 mg tablet,disintegrating 4 mg PO Q8H Qty: 12 0RF No Action Mirena 20 mcg/24 hours (7 yrs) 52 mg intrauterine device 52,000 mcg intrauterine QDAY Qty: 0 Rx Instructions: Due out 02/28/27 clobetasol 0.05 % ointment 1 applictn TOP BEDTIME Qty: 15 1RF bupropion HCl 150 mg tablet sustained-release 12 hr 150 mg PO BID Qty: 180 3RF fluoxetine [Prozac] 20 mg capsule 20 mg PO DAILY Qty: 90 3RF hydroxyzine HCl 25 mg tablet 25 mg PO TID PRN (Reason: anxiety) Qty: 90 11RF fluticasone propionate [Flonase Allergy Relief] 50 mcg/actuation spray,suspension 2 spray intranasal DAILY PRN (Reason: nasal congestion) Qty: 16 11RF Rx Instructions: administer into each nostril spironolactone 50 mg tablet 50 mg PO BID Qty: 180 3RF loratadine [Allerclear] 10 mg tablet 10 mg PO DAILY rosuvastatin [Crestor] 40 mg tablet 40 mg PO DAILY Qty: 100 3RF Referrals: Brittany Owens DO [Primary Care Provider] - Stand Alone Forms: Patient Portal/API/Survey
--- NOTE | 2025-02-09 14:03 | DI.CT.S_ITS ---
PROCEDURE: CT ANGIO HEAD AND NECK INDICATIONS: vertigo TECHNIQUE: After the administration of intravenous contrast, 1 mm thick sections acquired from the aortic arch through the [place] of [place]. 3-dimensional wvwodrh-uozctpckh-uvjwfbkrps (MIP) and/or volume rendering reformats were acquired of the central intracranial vasculature and neck separately. For radiation dose reduction, the following was used: automated exposure control, adjustment of mA and/or kV according to patient size. COMPARISON: [facility], CT, CT HEAD/BRAIN WO CON, 02/09/2025, 12:28. FINDINGS: Image quality: Diagnostic. BRAIN: See separately dictated CT brain report of 02/09/2025. HEAD CT ANGIOGRAPHY: Anterior circulation: Intracranial internal carotid arteries are normal in size and flow. The flow within the paired anterior cerebral arteries is normal and symmetric. The flow within the middle cerebral arteries is normal and symmetric. The anterior communicating artery is seen. No aneurysms are seen. Posterior circulation: Slight right vertebral artery dominance. Visualized portions of the vertebral arteries demonstrate normal caliber, and join to form a normal appearing basilar artery. Flow within the posterior cerebral arteries is normal and symmetric. No aneurysms are seen. NECK CT ANGIOGRAPHY: Carotid system: The great vessels demonstrate a conventional anatomy as they arise from the aortic arch. The origins of the common carotid arteries appear patent. The common carotid arteries demonstrate normal caliber and courses. The bifurcation regions are both widely patent. The internal carotid arteries demonstrate normal calibers and courses. Posterior circulation: The origins of the vertebral arteries both appear widely patent. The more superior extracranial portions of both vertebral arteries also demonstrate normal courses and calibers. They join to form a normal appearing basilar artery. Soft tissues: Visualized neck soft tissues demonstrate no suspicious abnormalities. Bones: No suspicious bony lesions. Visualized cervical spine appears normally aligned. IMPRESSION: No significant intracranial arterial abnormality is seen. No significant abnormality is seen within the arteries of the neck. Any quantitative measurements of stenosis were performed using NASCET criteria. Dictated by: Geri Plaza M.D. on 02/09/2025 at 14:41 Approved by: Geri Plaza M.D. on 02/09/2025 at 14:42
--- NOTE | 2025-02-09 14:06 | DI.MRI.S_ITS ---
PROCEDURE: MR HEAD/BRAIN WO CON INDICATIONS: dizziness/vertigo TECHNIQUE: Noncontrast axial T1 spin echo, axial T2 fast spin echo, sagittal and axial FLAIR, coronal T2 fast spin echo, axial gradient echo, axial diffusion and ADC through the brain. COMPARISON: [facility], CT, CT ANGIO HEAD AND NECK, 02/09/2025, 14:24. [facility], CT, CT HEAD/BRAIN WO CON, 02/09/2025, 12:28. FINDINGS: Image quality: Excellent. CSF Spaces: Basal cisterns are patent. No extra-axial fluid collections. Ventricles are normal in size and shape. Brain: No intracranial masses or hemorrhage. Beckham/white matter interface is normal. Brainstem appears normal. Diffusion-weighted images demonstrate no acute infarct. No chronic ischemic insults. Normal intravascular flow voids are present. Minimal scattered subcortical white matter hyperintensities most prominent in the frontal lobes. Skull and face: Calvarium has normal marrow signal. Orbits appear normal. Sinuses: Sinuses and mastoids are clear. IMPRESSION: 1. No acute intracranial process. 2. Scattered areas subcortical white matter hyperintensity. These are overall nonspecific. These can be seen with chronic microvascular ischemia. While this is a possibility, given patient's age other etiology such as vasculitis, migraine sequela, foci of prior infection/inflammation or under appropriate clinical circumstances demyelinating disease should be considered. Dictated by: Geri Plaza M.D. on 02/09/2025 at 15:01 Approved by: Geri Plaza M.D. on 02/09/2025 at 15:03
[2025-02-09] MEDS: PROCHLORPERAZINE 10 MG/2 ML VIAL IV (14:13)
== END 2025-02-09 15:32 | disposition home or self-care (01) ==
PROVIDERS: Emergency Medicine; Emergency Provider Emergency Medicine; PCP Family Medicine
DX: R42 Dizziness and giddiness (principal); R51.9 Headache, unspecified; R11.10 Vomiting, unspecified; Z97.5 Presence of (intrauterine) contraceptive device; R40.2412 Glasgow coma scale score 13-15, at arrival to emergency department
CPT/HCPCS: 36415; 70450; 70496; 70498; 70551; 80053; 81003; 81025; 82550; 83735; 84484; 85025; 85610; 85730; 93005; 96374; 96375; 99284; J0780; J2405; Q9967